=== PATIENT | male | born 1955 | race Caucasian/White ===

== ENCOUNTER 2017-12-02 18:48 | Emergency (ER) | payer BC ==
[2017-12-02] MEDS ORDERED: HYDROmorphone 0.5 MG/0.5 ML Syringe IVPUSH ONE ×3 (19:32→22:27)
[2017-12-02] MEDS ORDERED: Ondansetron 4 MG/2 ML SDV IVPUSH ONE (19:32)
[2017-12-02] MEDS ORDERED: Sodium Chloride 0.9% 10 ML Syringe FLUSH PRN (19:32)
--- NOTE | 2017-12-02 19:33 | EDM.PDOC ---
ED HPI GENERAL MEDICAL PROBLEM - General Chief Complaint: Abdominal Pain Stated Complaint: R ABDOMINAL PAIN Time Seen by Provider: 12/02/17 19:25 Source of Information: Reports: Patient, RN Notes Reviewed - History of Present Illness INITIAL COMMENTS - FREE TEXT/NARRATIVE: 62 year old male with onset of R flank and back pain about 3 hours ago. Pain is now coming around to R abd. No major back pain now, more R flank and R abd. Mild nausea, no vomiting, pain remains severe, sharp, shooting. No chest pain or difficulty breathing. No fever or chills. Hx renal insufficiency, hx of diabetes, Htn. Hx renal insufficiency Right Lower Abdomen Pain Score (Numeric/FACES): 10 - Related Data Allergies Allergy/AdvReac Type Severity Reaction Status Date / Time RADHA Inhibitors Allergy Rash Verified 12/02/17 19:08 Home Meds: Home Meds Insulin Glarg,Human.Rec.Analog [Lantus Solostar] 26 units SQ BEDTIME 11/18/14 [ History] Insulin Lispro [Humalog] 10 units SQ DAILY 11/18/14 [History] Labetalol [Normodyne] 2 tab PO BID 11/18/14 [History] Warfarin [Coumadin] 5 mg PO DAILY 11/18/14 [History] Albuterol Sulfate [Ventolin Hfa] 2 puff INH Q4H PRN 12/02/17 [History] Allopurinol [Zyloprim] 200 mg PO DAILY 12/02/17 [History] Calcitriol 0.25 mcg PO DAILY 12/02/17 [History] Doxazosin [Cardura] 2 mg PO DAILY 12/02/17 [History] Furosemide [Lasix] 40 mg PO DAILY 12/02/17 [History] Insulin Lispro [Humalog] 8 units INJECT 1200 12/02/17 [History] Insulin Lispro [Humalog] 13 units INJECT 1800 12/02/17 [History] Isosorbide Mononitrate [Imdur] 60 mg PO BID 12/02/17 [History] hydrALAZINE [Apresoline] 50 mg PO BID 12/02/17 [History] Past Medical History Cardiovascular History: Reports: Hypertension, Pacemaker, Other (See Below) Other Cardiovascular History: cabg x 3 2006 Respiratory History: Reports: Pneumonia, Recurrent Genitourinary History: Reports: Chronic Renal Insuffiency Endocrine/Metabolic History: Reports: Diabetes, Type II Social & Family History - Tobacco Use Smoking Status *Q: Never Smoker - Caffeine Use Caffeine Use: Reports: Coffee - Recreational Drug Use Recreational Drug Use: No ED ROS GENERAL - Review of Systems Review Of Systems: See Below Constitutional: Denies: Fever, Chills, Diaphoresis HEENT: Denies: Sinus Problem, Throat Pain Respiratory: Denies: Shortness of Breath, Wheezing, Pleuritic Chest Pain, Cough Cardiovascular: Denies: Chest Pain GI/Abdominal: Reports: Abdominal Pain (R flank), Nausea (gone). Denies: Diarrhea, Vomiting : Reports: No Symptoms Musculoskeletal: Reports: Back Pain (R back and R flank) Skin: Denies: Rash Neurological: Reports: No Symptoms ED EXAM, RENAL/ - Physical Exam Exam: See Below General Appearance: Alert, Severe Distress Eye Exam: Bilateral Eye: PERRL Throat/Mouth: Normal Inspection, Normal Oropharynx Head: No: Facial Swelling Neck: Supple, Full Range of Motion Respiratory/Chest: No Respiratory Distress, Lungs Clear, Normal Breath Sounds Cardiovascular: Regular Rate, Rhythm GI/Abdominal: Soft, Tender (very mild tenderness R lower abd, remainder of abd soft and nontender) Back Exam: No: CVA Tenderness (L), CVA Tenderness (R) Extremities: Normal Inspection, Normal Range of Motion, Pedal Edema (very mild bilat) Neurological: Alert, Oriented, No Motor/Sensory Deficits Skin Exam: Warm, Dry, Normal Color Course - Vital Signs Last Recorded V/S: Last Vital Signs Temp 96.9 F 12/02/17 19:07 Pulse 71 12/02/17 19:07 Resp 20 12/02/17 19:07 BP 187/85 H 12/02/17 19:07 Pulse Ox 97 12/02/17 19:07 - Orders/Labs/Meds Orders: Active Orders 24 hr Category Date Time Status Peripheral IV Care [RC] . DIRECTED Care 12/02/17 19:32 Active Sodium Chloride 0.9% [Normal Saline] 1,000 ml Med 12/02/17 19:45 Active IV ASDIRECTED Sodium Chloride 0.9% [Saline Flush] Med 12/02/17 19:32 Active 10 ml FLUSH ASDIRECTED PRN Peripheral IV Insertion Adult [OM.PC] Stat Oth 12/02/17 19:31 Ordered Medication Orders Sodium Chloride (Normal Saline) 1,000 mls @ 150 mls/hr IV ASDIRECTED ROSALES Last Admin: 12/02/17 19:43 Dose: 150 mls/hr Sodium Chloride (Saline Flush) 10 ml FLUSH ASDIRECTED PRN PRN Reason: Keep Vein Open Last Admin: 12/02/17 19:46 Dose: 10 ml Labs: Laboratory Tests 12/02/17 12/02/17 12/02/17 Range/Units 19:35 19:35 19:35 WBC 6.83 (4.23-9.07) K/mm3 RBC 3.16 L (4.63-6.08) M/mm3 Hgb 9.2 L (13.7-17.5) gm/L Hct 29.0 L (40.1-51.0) % MCV 91.8 (79.0-92.2) fl MCH 29.1 (25.7-32.2) pg MCHC 31.7 L (32.2-35.5) g/dl RDW Std Deviation 47.8 H (35.1-43.9) fL Plt Count 158 L (163-337) K/mm3 MPV 11.2 (9.4-12.3) fl Neut % (Auto) 76.5 H (34.0-67.9) % Lymph % (Auto) 15.1 L (21.8-53.1) % [place] % (Auto) 5.9 (5.3-12.2) % Eos % (Auto) 1.8 (0.8-7.0) Baso % (Auto) 0.6 (0.1-1.2) % Neut # (Auto) 5.23 (1.78-5.38) K/mm3 Lymph # (Auto) 1.03 L (1.32-3.57) K/mm3 [place] # (Auto) 0.40 (0.30-0.82) K/mm3 Eos # (Auto) 0.12 (0.04-0.54) K/mm3 Baso # (Auto) 0.04 (0.01-0.08) K/mm3 Sodium 142 (136-145) mEq/L Potassium 5.4 H (3.5-5.1) mEq/L Chloride 110 H (98-107) mEq/L Carbon Dioxide 21 (21-32) mEq/L Anion Gap 16.4 H (5-15) BUN 56 H (7-18) mg/dL Creatinine 4.8 H (0.7-1.3) mg/dL Est Cr Clr Drug Dosing 16.16 mL/min Estimated GFR (MDRD) 12 (>60) mL/min BUN/Creatinine Ratio 11.7 L (14-18) Glucose 115 (80-115) mg/dL Calcium 8.8 (8.5-10.1) mg/dL Total Bilirubin 0.4 (0.2-1.0) mg/dL AST 31 (15-37) U/L ALT 32 (16-63) U/L Alkaline Phosphatase 85 (46-116) U/L Total Protein 6.3 L (6.4-8.2) g/dl Albumin 3.0 L (3.4-5.0) g/dl Globulin 3.3 gm/dL Albumin/Globulin Ratio 0.9 L (1-2) Urine Color Yellow (Yellow) Urine Appearance Clear (Clear) Urine pH 6.0 (5.0-8.0) Ur Specific [place] 1.025 (1.005-1.030) Urine Protein 3+ H (Negative) Urine Glucose (UA) Negative (Negative) Urine Ketones Negative (Negative) Urine Occult Blood Trace-lysed H (Negative) Urine Nitrite Negative (Negative) Urine Bilirubin Negative (Negative) Urine Urobilinogen 0.2 (0.2-1.0) Ur Leukocyte Esterase Negative (Negative) Urine RBC 5-10 H (0-5) /hpf Urine WBC 0-5 (0-5) /hpf Ur Epithelial Cells 0-5 (0-5) /hpf Urine Bacteria Few (FEW) /hpf Urine Mucus Few (FEW) /hpf Meds: Medications Generic Name Dose Route Start Last Admin Trade Name Freq PRN Reason Stop Dose Admin Sodium Chloride 1,000 mls @ 150 mls/hr 12/02/17 19:45 12/02/17 19:43 Normal Saline IV 150 mls/hr ASDIRECTED ROSALES Administration Sodium Chloride 10 ml 12/02/17 19:32 12/02/17 19:46 Saline Flush FLUSH 10 ml ASDIRECTED PRN Administration Keep Vein Open Discontinued Medications Generic Name Dose Route Start Last Admin Trade Name Freq PRN Reason Stop Dose Admin Hydromorphone HCl 0.5 mg 12/02/17 19:32 12/02/17 19:44 Dilaudid IVPUSH 12/02/17 19:33 0.5 mg ONETIME ONE Administration Hydromorphone HCl 0.5 mg 12/02/17 20:38 12/02/17 20:40 Dilaudid IVPUSH 12/02/17 20:39 0.5 mg ONETIME STA Administration Hydromorphone HCl Confirm 12/02/17 20:44 12/02/17 20:42 Dilaudid Administered 12/02/17 20:45 Not Given Dose 0.5 mg .ROUTE .STK-MED ONE Hydromorphone HCl 0.5 mg 12/02/17 21:18 12/02/17 21:24 Dilaudid IVPUSH 12/02/17 21:19 0.5 mg ONETIME ONE Administration Ondansetron HCl 4 mg 12/02/17 19:32 12/02/17 19:43 Zofran IVPUSH 12/02/17 19:33 4 mg ONETIME ONE Administration - Re-Assessments/Exams Free Text/Narrative Re-Assessment/Exam: 12/02/17 21:30. labs as documented., WBC normal, Urine does not show infection. CT shows severe inflamatory change R kidney, consider pyelo. or venous obstruction. See Radiologist report for details. Creat. 4.8. Will transfer to [facility]. Dr Pope accepting Phys. Departure - Departure Time of Disposition: 21:56 Disposition: Home, Self-Care 01 Condition: Serious Clinical Impression: Venous obstruction, Acute flank pain, Renal insufficiency - Discharge Information Referrals: Nathaly Garces MD [Primary Care Provider] - Forms: ED Department Discharge - My Orders Last 24 Hours: My Active Orders 12/02/17 19:31 Peripheral IV Insertion Adult [OM.PC] Stat 12/02/17 19:32 Peripheral IV Care [RC] . DIRECTED Sodium Chloride 0.9% [Saline Flush] 10 ml FLUSH ASDIRECTED PRN 12/02/17 19:45 Sodium Chloride 0.9% [Normal Saline] 1,000 ml IV ASDIRECTED - Assessment/Plan Last 24 Hours: My Active Orders 12/02/17 19:31 Peripheral IV Insertion Adult [OM.PC] Stat 12/02/17 19:32 Peripheral IV Care [RC] . DIRECTED Sodium Chloride 0.9% [Saline Flush] 10 ml FLUSH ASDIRECTED PRN 12/02/17 19:45 Sodium Chloride 0.9% [Normal Saline] 1,000 ml IV ASDIRECTED
[2017-12-02] MEDS ORDERED: Sodium Chloride 0.9% 1,000 ML IV SCH (19:45)
--- NOTE | 2017-12-02 20:28 | CT ---
CT abdomen and pelvis Technique: Multiple axial sections were obtained from above the dome of the diaphragm inferiorly through the pubic symphysis. Intravenous and oral contrast was not utilized. Comparison: No previous studies available. Findings: Very small right sided pleural effusion is seen. Liver shows no focal parenchymal abnormality. Artifact is noted within the heart from pacemaker or AICD. Adrenal glands show no nodule. Spleen shows no discrete abnormality. Pancreas is within normal limits. Gallbladder contains a small calcified gallstone. Aorta shows no aneurysmal dilatation with atherosclerotic change being seen within the aorta and iliac vessels. No retroperitoneal adenopathy is seen. No pelvic mass or adenopathy is seen. Right sided hydrocele is noted within the visualized scrotum. Right kidney is diffusely abnormal and appears swollen. Severe surrounding inflammatory change is seen. I do not see any hydronephrosis. No abnormal calcifications are appreciated along the course of the ureters. Left kidney appears within normal limits. Impression: 1. Prominent swelling of the right kidney with severe surrounding inflammatory change. Differential includes venous vascular obstruction as well as diffuse and severe pyelonephritis. Nothing seen to indicate ureteral obstruction as no hydronephrosis or ureteral calculi are seen. If any clinical questions remain, contrast study could be considered to further evaluate, this should be done in arterial and late venous phase if performed. 2. Small calcified gallstone within the gallbladder. 3. Right-sided hydrocele within the visualized scrotum. 4. Small right sided pleural effusion. Diagnostic code #5
[2017-12-02] MEDS ORDERED: HYDROmorphone 0.5 MG/0.5 ML Syringe IVPUSH STA (20:38)
[2017-12-02] MEDS ORDERED: HYDROmorphone 0.5 MG/0.5 ML Syringe ONE (20:44)
== END 2017-12-02 22:30 ==
LOC: JD.ED 18:48
DX: I87.1 Compression of vein (principal); R10.31 Right lower quadrant pain; I12.9 Hypertensive chronic kidney disease with stage 1 through stage 4 chronic kidney disease, or unspecified chronic kidney disease; E11.22 Type 2 diabetes mellitus with diabetic chronic kidney disease; N18.9 Chronic kidney disease, unspecified; Z79.4 Long term (current) use of insulin; Z79.01 Long term (current) use of anticoagulants; Z79.899 Other long term (current) drug therapy; Z88.8 Allergy status to other drugs, medicaments and biological substances
CPT/HCPCS: 36415; 74176; 80053; 81001; 85025; 96361; 96374; 96375; 96376; 99285; J1170; J2405; J7040; J7050

== ENCOUNTER 2018-06-10 09:56 | Day surgery (SDC) | payer BC ==
[~2018-06-10 09:56] MED LIST: Lactated Ringers 1,000 ML IV SCH; Lidocaine 1%/Sod Bicarbonate in NS 8.4% 1 ML Syringe IDERM PRN; Sodium Chloride 0.9% 10 ML Syringe FLUSH PRN
[2018-06-10] MEDS ORDERED: Bupivacaine 0.5% 30 ML SDV ONE (10:31)
[2018-06-10] MEDS ORDERED: Sodium Chloride 0.9% 1,000 ML IV SCH (10:45)
[2018-06-10] MEDS ORDERED: Lidocaine 1% with EPINEPHrine 1:100,000 20 ML MDV ONE (10:54)
--- NOTE | 2018-06-10 11:13 | PCM.PREANE ---
Preanesthetic Assessment - Procedure Proposed Procedure: removal of dialysis catheter - Anesthesia/Transfusion/Family Hx Anesthesia History: Prior Anesthesia Without Reaction Family History of Anesthesia Reaction: No Transfusion History: Prior Transfusion Without Reaction - Review of Systems General: No Symptoms Pulmonary: No Symptoms Cardiovascular: No Symptoms Gastrointestinal: No Symptoms Neurological: No Symptoms Other: Reports: Easy Bleeding, Easy Bruising, Diabetes - Physical Assessment NPO Status Date: 06/09/18 NPO Status Time: 18:00 O2 Sat by Pulse Oximetry: 97 Respiratory Rate: 20 Vital Signs: Last Vital Signs Temp 97.8 F 06/10/18 10:00 Pulse 66 06/10/18 10:00 Resp 20 06/10/18 10:00 BP 120/64 06/10/18 10:00 Pulse Ox 97 06/10/18 10:00 Height: 5 ft 10 in Weight: 99.79 kg ASA Class: 3 Mental Status: Alert & Oriented x3 Airway Class: Mallampati = 1 Dentition: Reports: Dentures (top and bottom) Thyro-Mental Finger Breadths: 3 Mouth Opening Finger Breadths: 3 ROM/Head Extension: Full Lungs: Clear to Auscultation, Normal Respiratory Effort Cardiovascular: Regular Rate, Regular Rhythm - Lab Values: Laboratory Last Values POC Glucose 148 mg/dL (80-115) H 06/10/18 10:21 - Allergies Allergies/Adverse Reactions: Allergies Allergy/AdvReac Type Severity Reaction Status Date / Time RADHA Inhibitors Allergy Rash Verified 06/09/18 12:40 - Blood Blood Available: No - Anesthesia Plan Beta Kamron: Labetalol Med Last Dose Date: 06/09/18 Med Last Dose Time: 19:00 - Acknowledgements Anesthesia Type Planned: MAC Pt an Appropriate Candidate for the Planned Anesthesia: Yes Alternatives and Risks of Anesthesia Discussed w Pt/Guardian: Yes Pt/Guardian Understands and Agrees with Anesthesia Plan: Yes PreAnesthesia Questionnaire HEENT History: Reports: Other (See Below) Other HEENT History: glasses, dentures Cardiovascular History: Reports: Cardiomyopathy, High Cholesterol, Other (See Below) Other Cardiovascular History: valvular cardiomyopathy, diastolic dysfunction, polyarteritis nodosa, av fistula Respiratory History: Reports: None Gastrointestinal History: Reports: Colon Polyp, Other (See Below) Other Gastrointestinal History: retroperitoneal hematoma Genitourinary History: Reports: Chronic Renal Insuffiency, Pyelonephritis, Other (See Below) Other Genitourinary History: CKD, ARF IV, ESRD, pylenonephritis--on dialysis , and wednesday [employer] TECHNICIAN History: Reports: None Musculoskeletal History: Reports: Other (See Below) Other Musculoskeletal History: metabolic bone disease Neurological History: Reports: None Psychiatric History: Reports: None Endocrine/Metabolic History: Reports: Diabetes, Type II, Hyperparathyroidism Hematologic History: Reports: Anemia, Iron Deficiency Immunologic History: Reports: None Oncologic (Cancer) History: Reports: None Dermatologic History: Reports: None - Past Surgical History Head Surgeries/Procedures: Reports: None Cardiovascular Surgical History: Reports: Coronary Artery Bypass, Pacer, Valve Replacement Respiratory Surgical History: Reports: None GI Surgical History: Reports: Colonoscopy Female Surgical History: Reports: None Endocrine Surgical History: Reports: None Neurological Surgical History: Reports: None Musculoskeletal Surgical History: Reports: None Oncologic Surgical History: Reports: None Dermatological Surgical History: Reports: None - SUBSTANCE USE Smoking Status *Q: Former Smoker Tobacco Use Within Last Twelve Months: No Second Hand Smoke Exposure: No Days Per Week of Alcohol Use: 0 Recreational Drug Use History: No - HOME MEDS Home Medications: Home Meds Insulin Aspart [NovoLOG] 8 units SQ WITHLUNCH 06/09/18 [History] Insulin Aspart [NovoLOG] 10 units SQ ACBREAKFAST 06/09/18 [History] Insulin Aspart [NovoLOG] 14 units SQ ACDINNER 06/09/18 [History] Insulin Glarg,Human.Rec.Analog [Lantus Solostar] 20 units SQ BEDTIME 06/09/18 [ History] Isosorbide Mononitrate [Imdur] 60 mg PO BID 06/09/18 [History] Labetalol HCl [Labetalol] 600 mg PO TID 06/09/18 [History] Simvastatin [Zocor] 5 mg PO DAILY 06/09/18 [History] Warfarin Sodium 7.5 mg PO DAILY 06/09/18 [History] amLODIPine Besylate [Amlodipine Besylate] 5 mg PO DAILY 06/09/18 [History] - CURRENT (IN HOUSE) MEDS Current Meds: Current Medications Lactated Ringer's (Ringers, Lactated) 1,000 mls @ 125 mls/hr IV ASDIRECTED ROSALES Stop: 06/10/18 23:00 Sodium Chloride (Normal Saline) 1,000 mls @ 125 mls/hr IV ASDIRECTED ROSALES Stop: 06/10/18 23:00 Last Admin: 06/10/18 10:20 Dose: 125 mls/hr Lidocaine/Sodium Bicarbonate (Buffered Lidocaine 1% In Ns 8.4%) 0.25 ml IDERM ONETIME PRN PRN Reason: Prior to IV Start Stop: 06/10/18 18:00 Last Admin: 06/10/18 10:19 Dose: 0.25 ml Sodium Chloride (Saline Flush) 10 ml FLUSH ASDIRECTED PRN PRN Reason: Keep Vein Open Stop: 06/10/18 18:00 Discontinued Medications Bupivacaine HCl (Marcaine 0.5%) Confirm Administered Dose 30 ml .ROUTE .STK-MED ONE Stop: 06/10/18 10:32 Lidocaine/Epinephrine (Xylocaine 1% With Epinephrine 1:100,000) Confirm Administered Dose 40 ml .ROUTE .STK-MED ONE Stop: 06/10/18 10:55
[2018-06-10] MEDS ORDERED: fentaNYL 100 MCG/2 ML SDV ONE (12:30)
--- NOTE | 2018-06-10 12:45 | PCM.OPNOTE ---
- General Post-Op/Procedure Note Date of Surgery/Procedure: 06/10/18 Operative Procedure(s): removal of dialysis catheter Findings: intact dialysis catheter Pre Op Diagnosis: ESRD with dialysis catheter Post-Op Diagnosis: same Anesthesia Technique: Local Primary Surgeon: Krissy Rosenthal Anesthesia Provider: Danielito Reid Pathology: dialysis catheter Fluid Replacement, Intraop: 250 Output, Urine Amount: 0 EBL in mLs: 3 Drain/Tube Comments:: none Complications: none apparent Condition: Good
--- NOTE | 2018-06-10 12:47 | PCM48HPAN ---
Post Anesthesia Note - EVALUATION WITHIN 48HRS OF ANESTHETIC Vital Signs in Normal Range: Yes Patient Participated in Evaluation: Yes Respiratory Function Stable: Yes Airway Patent: Yes Cardiovascular Function Stable: Yes Hydration Status Stable: Yes Pain Control Satisfactory: Yes Nausea and Vomiting Control Satisfactory: Yes Mental Status Recovered: Yes Pulse Rate: 67 SaO2: 98 Resp Rate: 20 Temperature: 97.7 F Blood Pressure: 148/65
[2018-06-10] MEDS ORDERED: ceFAZolin 1 GM Vial ONE (12:50)
--- NOTE | 2018-06-10 12:58 | PCM.PRNOTE ---
- Free Text/Narrative Note: Operative Report Date of surgery: 06/10/18 Preoperative diagnosis: ESRD with dialysis catheter Postoperative diagnosis: same Surgeon: Dr. Krissy Rosenthal Anesthesia: local Estimated blood loss : 3 mL IV fluids: 250 mL Urine output: 0 mL Drains and lines: None Indication for procedure: The patient is a 62-year-old man who presented to the outpatient clinic requesting removal of his dialysis catheter. The patient was started on hemodialysis at the beginning of this year, and had a dialysis catheter placed for start of hemodialysis. He subsequently underwent surgery to create an 8 feet fistula. The fistula is now matured and is being used for dialysis. The patient needs his catheter removed. He takes anticoagulants for his mechanical heart valve, and is followed at the anticoagulation clinic in [place]. After coordination of care with some, the patient's anticoagulations were stopped, so that the patient would have a normal INR for this procedure. He was consented for excision of this procedure with risks of bleeding and infection explained. The patient's written consent was obtained Description of procedure: The patient was taken back to the operating room and placed in supine position on the operating table. Preoperative antibiotics of 1g ancef was administered. A surgical timeout was performed. We began by injecting 10 mL of 1% lidocaine with epinephrine around the catheter. The sutures were then cut and we attempted to remove the catheter. However, it was noted that this was tethered in the tunnel. We then proceeded to incise the skin on either side of the catheter's exit site. A hemostat was then used to dissect the tissue along the tract. Additional local anesthetic of 1% lidocaine with epinephrine was administered as needed. The Bovie device was then used to free up the tissue surrounding the catheter and cuff. Once this was free, the catheter was removed and pressure was held at the IJ site for 5 minutes. The catheter exit site was then packed with iodoform and covered with a dry dressing. The Bovie device was used to ensure hemostasis. The patient tolerated the procedure well and was transported to the PACU in stable condition. All sponge and needle counts were correct. I was present and scrubbed for the entirety of the procedure. Krissy Rosenthal MD General Surgery
== END 2018-06-10 13:25 | disposition home or self-care (01) ==
LOC: JD.SDS 09:56
PROVIDERS: ATTEND Surgery
DX: Z45.2 Encounter for adjustment and management of vascular access device (principal); I13.2 Hypertensive heart and chronic kidney disease with heart failure and with stage 5 chronic kidney disease, or end stage renal disease; I50.30 Unspecified diastolic (congestive) heart failure; E11.22 Type 2 diabetes mellitus with diabetic chronic kidney disease; N18.6 End stage renal disease; Z99.2 Dependence on renal dialysis; N25.81 Secondary hyperparathyroidism of renal origin; E78.2 Mixed hyperlipidemia; D50.9 Iron deficiency anemia, unspecified; Z87.891 Personal history of nicotine dependence; Z79.01 Long term (current) use of anticoagulants; Z79.4 Long term (current) use of insulin; Z79.899 Other long term (current) drug therapy; Z95.810 Presence of automatic (implantable) cardiac defibrillator; Z88.8 Allergy status to other drugs, medicaments and biological substances
CPT/HCPCS: 36589; 82962; J0690; J3010; J7040; J3490